=== PATIENT | female | born 1995 | race African-American/Black ===

== ENCOUNTER → 2017-01-12 | Outpatient (CLI) | payer OTHER ==
[2017-01-12 09:12] LABS: THYROID STIMULATING HORMONE 1.28 uIU/ml (0.34-5.60)
[2017-01-12 09:18] LABS: FREE THYROXIN (T4) 0.81 ng/dL (0.58-1.64)
== END | disposition home or self-care (01) ==
LOC: CSSDAY 07:53
PROVIDERS: Internal Medicine Endocrinology, Diabetes & Metabolism
DX: R63.4 Abnormal weight loss (principal)
CPT/HCPCS: 36415; 82024; 82533; 84439; 84443; 96374; J0833